=== PATIENT | female | born 1985 | race Caucasian/White ===

== ENCOUNTER 2022-01-03 12:09 | Emergency (ER) | payer OTHER ==
[~2022-01-03] VITALS: Ht 152.4 cm; Wt 47.6 kg
== END 2022-01-03 18:03 | disposition home or self-care (01) ==
LOC: ER 12:09
DX: O20.9 Hemorrhage in early pregnancy, unspecified (principal); Z3A.01 Less than 8 weeks gestation of pregnancy

== ENCOUNTER 2022-08-11 11:11 | Emergency (ER) | payer OTHER ==
[~2022-08-11] VITALS: Ht 152.4 cm; Wt 52.2 kg
[2022-08-11] MEDS ORDERED: VITAMIN D3250 MCG PO (11:55)
[2022-08-11] MEDS ORDERED: PROGESTERONE200 MG PO (11:55)
== END 2022-08-11 14:59 | disposition home or self-care (01) ==
LOC: ER 11:11
DX: O20.8 Other hemorrhage in early pregnancy (principal); Z3A.01 Less than 8 weeks gestation of pregnancy; Z88.0 Allergy status to penicillin

== ENCOUNTER 2022-11-24 20:58 | Emergency (ER) | payer OTHER ==
[~2022-11-24] VITALS: Ht 152.4 cm; Wt 542.0 kg
[~2022-11-24 20:58] MED LIST: PROGESTERONE200 MG PO; VITAMIN D3250 MCG PO
[2022-11-24 23:14] LABS: HEMATOCRIT 31.6 % (36.0-45.00); HEMOGLOBIN 10.4 g/dL (12.0-15.00); MEAN CELL VOLUME 86.9 fL (80.00-100.00); MEAN CORPUSCULAR HEMOGLOBIN 28.5 pg (27.00-32.0); MEAN CORPUSCULAR HGB CONC 32.9 g/dl (32.0-36.0); PLATELET COUNT 255 K/uL (150-450); RED BLOOD COUNT 3.63 M/uL (4.00-6.00); RED CELL DISTRIBUTION WIDTH 14.3 % (11.5-14.5)
== END 2022-11-24 23:54 | disposition home or self-care (01) ==
LOC: ER 20:58
PROVIDERS: General Practice
DX: R05.3 Chronic cough (principal)

== ENCOUNTER 2022-11-28 09:36 | Emergency (ER) | payer OTHER ==
[~2022-11-28] VITALS: Ht 167.6 cm; Wt 59.9 kg
[2022-11-28 11:41] LABS: HEMATOCRIT 31.4 % (36.0-45.00); HEMOGLOBIN 10.5 g/dL (12.0-15.00); MEAN CELL VOLUME 85.6 fL (80.00-100.00); MEAN CORPUSCULAR HEMOGLOBIN 28.7 pg (27.00-32.0); MEAN CORPUSCULAR HGB CONC 33.5 g/dl (32.0-36.0); PLATELET COUNT 293 K/uL (150-450); RED BLOOD COUNT 3.67 M/uL (4.00-6.00); RED CELL DISTRIBUTION WIDTH 14.5 % (11.5-14.5)
[2022-11-28 13:22] LABS: URINE APPEARANCE Clear; URINE BILIRRUBIN Negative (NEGATIVE); URINE BLOOD Negative; URINE COLOR Yellow; URINE GLUCOSE Negative (NEGATIVE); URINE LEUKOCYTE Negative; URINE NITRATE Negative; URINE PROTEIN Negative (NEGATIVE); URINE UROBILINOGEN 0.2 E.U./dl
[2022-11-28 13:25] LABS: URINE BACTERIA 3074.1 uL (0.0-1933); URINE EPITHELIAL CELLS 68.4 uL (0.0-38.8); URINE RBC 21.4 uL (0.0-20.8); URINE WBC 12.2 uL (0.0-23.2)
[2022-11-28 13:36] LABS: URINE SPERM FEW; URINE YEAST FEW /hpf
== END 2022-11-28 15:41 | disposition home or self-care (01) ==
LOC: ER 09:36
PROVIDERS: General Practice
DX: O26.892 Other specified pregnancy related conditions, second trimester (principal); S80.01XA Contusion of right knee, initial encounter; S39.91XA Unspecified injury of abdomen, initial encounter; W19.XXXA Unspecified fall, initial encounter; Y93.89 Activity, other specified; Y92.89 Other specified places as the place of occurrence of the external cause; Y99.8 Other external cause status; Z3A.20 20 weeks gestation of pregnancy; Z88.0 Allergy status to penicillin

== ENCOUNTER → 2023-03-31 | Outpatient (CLI) | payer OTHER | END | disposition home or self-care (01) | LOC: NST 15:03 | PROVIDERS: ATTEND Obstetrics & Gynecology | DX: Z34.83 Encounter for supervision of other normal pregnancy, third trimester (principal) ==

== ENCOUNTER 2023-04-09 08:03 | Inpatient (IN) | payer OTHER ==
[2023-03-21 14:51] LABS: PH,URINE 7.5 (5.0-8.0); URINE APPEARANCE Clear; URINE BILIRRUBIN Negative (NEGATIVE); URINE BLOOD Negative; URINE COLOR Yellow; URINE GLUCOSE Negative (NEGATIVE); URINE LEUKOCYTE Trace; URINE NITRATE Negative; URINE PROTEIN Negative (NEGATIVE); URINE UROBILINOGEN 0.2 E.U./dl
[2023-03-21 14:52] LABS: URINE EPITHELIAL CELLS 66.3 uL (0.0-38.8); URINE RBC 14.8 uL (0.0-20.8); URINE WBC 24.7 uL (0.0-23.2)
[2023-03-21 14:57] LABS: HEMATOCRIT 31.5 % (36.0-45.00); HEMOGLOBIN 10.2 g/dL (12.0-15.00); MEAN CELL VOLUME 79.9 fL (80.00-100.00); MEAN CORPUSCULAR HGB CONC 32.6 g/dl (32.0-36.0); PLATELET COUNT 266 K/uL (150-450); RED BLOOD COUNT 3.94 M/uL (4.00-6.00); RED CELL DISTRIBUTION WIDTH 16.7 % (11.5-14.5)
[2023-03-21 15:13] LABS: URINE EPITHELIAL CELLS 0-4 /HPF
[2023-03-21 15:41] LABS: ALBUMIN 2.5 gm/dL (3.4-5.0); BILIRUBIN TOTAL 0.36 mg/dL (0.3-1.2); CALCIUM 8.6 mg/dL (8.5-10.1); CREATININE SERUM 0.38 mg/dL (0.55-1.02); GFR 189.53; GLOBULINA 3.9 G/DL (2.4-3.5); POTASSIUM 3.77 mEq/L (3.5-5.1); TOTAL PROTEIN 6.4 gm/dL (6.4-8.2)
[2023-03-21 15:54] LABS: PROTHROMBIN TIME 9.4 SECONDS (9.0-11.5)
[2023-03-21 15:55] LABS: INR < 0.93; PARTIAL THROMBOPLASTIN TIME 23.6 SECONDS (22.0-34.0)
[~2023-04-09] VITALS: Ht 152.4 cm; Wt 66.7 kg
[2023-04-09 09:02] LABS: HEMATOCRIT 34.4 % (36.0-45.00); HEMOGLOBIN 11.2 g/dL (12.0-15.00); MEAN CELL VOLUME 82.3 fL (80.00-100.00); MEAN CORPUSCULAR HEMOGLOBIN 26.8 pg (27.00-32.0); MEAN CORPUSCULAR HGB CONC 32.5 g/dl (32.0-36.0); PLATELET COUNT 259 K/uL (150-450); RED BLOOD COUNT 4.19 M/uL (4.00-6.00); RED CELL DISTRIBUTION WIDTH 23.6 % (11.5-14.5)
[2023-04-09] MEDS ORDERED: MISOPROSTOL 25 MCG/4 ML GEL.W.APPL ONE (09:21)
[2023-04-09] MEDS ORDERED: MISOPROSTOL 25 MCG/4 ML GEL.W.APPL VAG ONE ×4 (10:15→22:15)
[2023-04-09] MEDS ORDERED: PRENATABS RX T1 EACH PO (10:16)
[2023-04-09] MEDS ORDERED: IRON240 MG PO (10:16)
[2023-04-09] MEDS ORDERED: CHILDREN'S ASPI81 MG PO (10:17)
[2023-04-10] MEDS ORDERED: OXYTOCIN 500 ML IV SCH (08:30)
[2023-04-10] MEDS ORDERED: MORPHINE SULFATE 4 MG/ML CARTRIDGE IV ONE (13:15)
[2023-04-10] MEDS ORDERED: CLINDAMYCIN PHOSPHATE 150 MG/ML (900mg) IV ONE ×2 (18:15→19:45)
[2023-04-10] MEDS ORDERED: ERYTHROMYCIN BASE 3.5 GM OINT...G. OP ONE (19:21)
[2023-04-10] MEDS ORDERED: OXYTOCIN 10 UNITS/ML VIAL ONE ×2 (19:21)
[2023-04-10] MEDS ORDERED: ONDANSETRON HCL 2 MG/ML VIAL ONE (19:21)
[2023-04-10] MEDS ORDERED: CITRIC ACID/SODIUM CITRATE 30 ML BLIST.PACK PO ONE (19:34)
[2023-04-10] MEDS ORDERED: METOCLOPRAMIDE HCL 5 MG/ML VIAL ONE (19:35)
[2023-04-10] MEDS ORDERED: ONDANSETRON HCL 2 MG/ML VIAL IV ONE (20:00)
[2023-04-10] MEDS ORDERED: MEPERIDINE HCL/PF 25 MG/ML VIAL IV PRN (22:45)
[2023-04-10] MEDS ORDERED: OXYTOCIN 1,000 ML IV SCH (22:45)
[2023-04-10] MEDS ORDERED: PROMETHAZINE HCL 25 MG/ML AMPUL IV PRN (22:45)
[2023-04-10] MEDS ORDERED: KETOROLAC TROMETHAMINE 30 MG VIAL IV PRN (22:45)
[2023-04-11 03:00] LABS: HEMATOCRIT 34.6 % (36.0-45.00); HEMOGLOBIN 11.3 g/dL (12.0-15.00); MEAN CELL VOLUME 81.7 fL (80.00-100.00); MEAN CORPUSCULAR HEMOGLOBIN 26.7 pg (27.00-32.0); MEAN CORPUSCULAR HGB CONC 32.7 g/dl (32.0-36.0); PLATELET COUNT 242 K/uL (150-450); RED BLOOD COUNT 4.23 M/uL (4.00-6.00); RED CELL DISTRIBUTION WIDTH 24.4 % (11.5-14.5)
[2023-04-11] MEDS ORDERED: OxyCODONE HCL/APAP UD (PERCOCET) PO PRN (07:00)
[2023-04-11] MEDS ORDERED: IBUprofen 800 MG TABLET PO PRN (07:00)
[2023-04-11] MEDS ORDERED: DOCUSATE SODIUM 100MG CAP PO SCH (09:00)
[2023-04-11] MEDS ORDERED: SIMETHICONE 125 MG CAPSULE PO SCH (09:00)
[2023-04-11] MEDS ORDERED: CHLORHEXIDINE GLUCONATE 120 ML BOTTLE TOP ONE (15:57)
== END 2023-04-13 13:42 | disposition home or self-care (01) | DRG 788 ==
LOC: LDR 08:03 → O/R 04-10 20:10 → OB/GYN 04-10 21:11
PROVIDERS: Student in an Organized Health Care Education/Training Program; ADMIT Obstetrics & Gynecology; ATTEND Obstetrics & Gynecology
PROC: 3E0P7VZ Introduction of Hormone into Female Reproductive, Via Natural or Artificial Opening (ICD-10-PCS; 2023-04-09)
PROC: 4A1HXCZ Monitoring of Products of Conception, Cardiac Rate, External Approach (ICD-10-PCS; 2023-04-09)
PROC: 3E033VJ Introduction of Other Hormone into Peripheral Vein, Percutaneous Approach (ICD-10-PCS; 2023-04-10)
PROC: 10D00Z1 Extraction of Products of Conception, Low, Open Approach (ICD-10-PCS; principal; 2023-04-10 20:45)
DX: O61.0 Failed medical induction of labor (principal); O62.1 Secondary uterine inertia; Z3A.39 39 weeks gestation of pregnancy; Z37.0 Single live birth; Z20.822 Contact with and (suspected) exposure to COVID-19